=== PATIENT | male | born 1985 | race Two or more races ===

== ENCOUNTER 2023-05-15 13:34 | Emergency (ER) | payer MEDICAID, OTHER ==
[~2023-05-15] VITALS: Ht 175.3 cm; Wt 122.1 kg
[2023-05-15 14:32] LABS: Urine Bacteria NONE SEEN /hpf (None Seen); Urine Blood Negative /uL (Negative); Urine Clarity Clear (Clear); Urine Color Colorless (Yellow); Urine Protein, UAD Negative (Negative); Urine Specific Gravity 1.012 (1.001-1.035); Urine Urobilinogen Normal (Negative); Urine WBC <1 /hpf (0 - 3); Urine pH 5.5 (5.0-8.0)
[2023-05-15 14:50] LABS: Basophils # (auto) 0.1 10 ^3/uL (0-0.2); Basophils % (auto) 0.8 % (0.0-2.0); Eosinophils # (auto) 0.2 10 ^3/uL (0-0.8); Eosinophils % (auto) 2.3 % (0.0-7.0); Hematocrit 44.5 % (41.0-53.0); Hemoglobin 15.7 g/dL (13.5-17.5); Lymphocytes # (auto) 2.5 10 ^3/uL (0.4-5.4); Lymphocytes % (auto) 33.1 % (10.0-50.0); Mean Corpuscular Hemoglobin 31.2 pg (28.0-32.0); Mean Corpuscular Hgb Conc. 35.2 g/dL (32.0-36.0); Mean Corpuscular Volume 88.7 fL (80.0-100.0); Monocytes # (auto) 0.5 10 ^3/uL (0-1.3); Monocytes % (auto) 6.5 % (0.0-12.0); Neutrophils # (auto) 4.3 10 ^3/uL (1.6-8.6); Neutrophils % (auto) 57.3 % (37.0-80.0); Nucleated Red Blood Cells % 0.3 %; Red Blood Cells 5.02 10^6/uL (4.5-5.90); Red Cell Distribution Width 12.8 % (11.8-14.3); White Blood Cell 7.5 10^3/uL (4.4-10.8)
[2023-05-15 15:41] LABS: Alanine Aminotransferase 35 U/L (7-40); Albumin 4.4 g/dL (3.2-4.8); Alkaline Phosphatase 74 U/L (46-116); Anion Gap 5 (5-15); Aspartate Aminotransferase 23 U/L (13-40); Bilirubin, Total 0.4 mg/dL (0.2-1.0); Blood Urea Nitrogen 9 mg/dL (9-23); Calcium 9.5 mg/dL (8.7-10.4); Carbon Dioxide 26 mmol/L (20-30); Chloride 107 mmol/L (98-107); Glucose 96 mg/dL (74-106); Potassium 4.3 mmol/L (3.5-5.1); Sodium 138 mmol/L (136-145); Total Protein 7.2 g/dL (5.7-8.2)
[2023-05-15] MEDS ORDERED: ONDANSETRON HCL 4 MG/2 ML VIAL IV ONE (19:15)
[2023-05-15] MEDS ORDERED: SODIUM CHLORIDE 0.9% 1,000 ML IV ONE (19:15)
[2023-05-15] MEDS ORDERED: PANTOPRAZOLE 40 MG/10 ML VIAL INJ IV ONE (19:15)
[2023-05-15] MEDS ORDERED: MORPHINE SULFATE 4 MG/ML SYR/VIAL IV ONE (19:15)
[2023-05-15] MEDS ORDERED: ZOFR4T PO (19:17)
[2023-05-15] MEDS ORDERED: FAMO20TA10 PO (19:17)
[2023-05-15] MEDS ORDERED: DICY10CA PO (19:17)
[2023-05-15 19:50] VITALS: PULSE 64; RESP 20; TEMP 98.4; O2SAT 97
[2023-05-15 20:07] VITALS: BP 120/80; PULSE 64; RESP 20
== END 2023-05-15 20:44 | disposition home or self-care (01) ==
LOC: ER 13:34
DX: K29.70 Gastritis, unspecified, without bleeding (principal)
CPT/HCPCS: 36415; 74176; 80053; 81001; 85025; 96361; 96374; 96375; 99285; C9113; J2270; J2405; J7030

== ENCOUNTER 2023-06-14 14:29 | Emergency (ER) | payer OTHER ==
[~2023-06-14] VITALS: Ht 175.3 cm; Wt 128.0 kg
[~2023-06-14 14:29] MED LIST: DICY10CA PO; FAMO20TA10 PO; ZOFR4T PO
[2023-06-14] MEDS ORDERED: ACETAMINOPHEN 500 MG TAB PO ONE (15:15)
[2023-06-14 15:41] VITALS: BP 122/77
[2023-06-14 15:43] VITALS: PULSE 112; RESP 17; O2SAT 95
[2023-06-14 15:44] LABS: Basophils # (auto) 0 10 ^3/uL (0-0.2); Basophils % (auto) 0.2 % (0.0-2.0); Eosinophils # (auto) 0 10 ^3/uL (0-0.8); Eosinophils % (auto) 0.1 % (0.0-7.0); Hematocrit 42.6 % (41.0-53.0); Hemoglobin 14.9 g/dL (13.5-17.5); Lymphocytes # (auto) 0.8 10 ^3/uL (0.4-5.4); Lymphocytes % (auto) 5.4 % (10.0-50.0); Mean Corpuscular Hemoglobin 31.1 pg (28.0-32.0); Mean Corpuscular Volume 88.9 fL (80.0-100.0); Monocytes # (auto) 0.7 10 ^3/uL (0-1.3); Monocytes % (auto) 4.9 % (0.0-12.0); Neutrophils # (auto) 13.6 10 ^3/uL (1.6-8.6); Neutrophils % (auto) 89.4 % (37.0-80.0); Red Blood Cells 4.79 10^6/uL (4.5-5.90); Red Cell Distribution Width 12.5 % (11.8-14.3); White Blood Cell 15.2 10^3/uL (4.4-10.8)
[2023-06-14 16:05] LABS: Alanine Aminotransferase 45 U/L (7-40); Albumin 4.5 g/dL (3.2-4.8); Alkaline Phosphatase 77 U/L (46-116); Anion Gap 8 (5-15); Aspartate Aminotransferase 29 U/L (13-40); BUN/Creatinine Ratio 12.1 (10.0-20.0); Bilirubin, Total 0.7 mg/dL (0.2-1.0); Blood Urea Nitrogen 14 mg/dL (9-23); Calcium 9.7 mg/dL (8.7-10.4); Carbon Dioxide 25 mmol/L (20-30); Chloride 105 mmol/L (98-107); Glucose 95 mg/dL (74-106); Potassium 3.5 mmol/L (3.5-5.1); Sodium 138 mmol/L (136-145); Total Protein 7.5 g/dL (5.7-8.2)
[2023-06-14 17:25] VITALS: TEMP 97.9
[2023-06-14] MEDS ORDERED: IOHEXOL 350 MG/ML 100ML IJ ONE (17:33)
== END 2023-06-14 21:18 | disposition left against medical advice (07) ==
LOC: ER 14:29
DX: R10.30 Lower abdominal pain, unspecified (principal); R06.02 Shortness of breath; R11.2 Nausea with vomiting, unspecified; Z79.899 Other long term (current) drug therapy
CPT/HCPCS: 36415; 71046; 80053; 83880; 84484; 85025; 85379; 93005